=== PATIENT | male | born 1975 | race Caucasian/White ===

== ENCOUNTER 2021-03-23 20:30 | Inpatient (IN) ==
[2021-03-23] MEDS ORDERED: Azithromycin 250 MG TABLET PO ONE (21:09)
[2021-03-23] MEDS ORDERED: Isovue-370 500 ML BOTTLE IVP ONE (21:09)
[2021-03-23 21:41] LABS: Basophils % 0.2 %; Hematocrit 50.2 % (37.5-50.1); Hemoglobin 17.2 g/dL (12.9-16.9); Immature Granulocytes % 0.6 % (0-4); Mean Corpuscular HGB Conc 34.3 g/dL (31.6-35.5); Mean Corpuscular Volume 87.5 fL (83.0-100.0); Mean Platelet Volume 9.7 fL (9.4-12.4); Monocytes # 0.3 K/mcL (0.0-1.3); Monocytes % 5.1 %; Neutrophils # 3.7 K/mcL (1.6-8.9); Red Blood Count 5.74 M/mcL (4.19-5.50); Red Cell Distribution Width 13.5 % (11.5-14.5); Segmented Neutrophils % 74.1 %
[2021-03-23 21:42] LABS: Platelet Count 117 K/mcL (140-400)
[2021-03-23 21:46] LABS: Platelet Estimate Slight Decrease (Normal)
[2021-03-23 21:47] LABS: INR 1.4; Prothrombin Time 15.5 Seconds (9.4-12.1)
[2021-03-23 21:55] LABS: Alanine Aminotransferase 93 Units/L (7-52); Albumin 3.8 g/dL (3.5-5.7); Albumin/Globulin Ratio 1.2 (1.1-2.2); Alkaline Phosphatase 71 Units/L (34-104); Aspartate Amino Transferase 154 Units/L (13-39); BUN/Creatinine Ratio 9 (6-26); Bilirubin,Direct 0.2 mg/dL (0.0-0.2); Bilirubin,Indirect 0.4 mg/dL (0.0-1.0); Bilirubin,Total 0.6 mg/dL (0.3-1.0); Blood Urea Nitrogen 18 mg/dL (6-20); Calcium 8.3 mg/dL (8.6-10.3); Carbon Dioxide 22 mEq/L (23-29); Chloride 101 mEq/L (98-107); Globulin 3.3 g/dL (2.4-3.5); Glucose 269 mg/dL (70-105); Osmolality,Calculated 289 (280-300); Potassium 4.4 mEq/L (3.5-5.1); Sodium 134 mEq/L (136-145); Total Protein 7.1 g/dL (6.4-8.9); eGFR For African Americans 46 (> 60); eGFR For Non-African Americans 38 (> 60)
[2021-03-23 21:58] LABS: Troponin I < 0.03 ng/mL (< 0.04)
[2021-03-23] MEDS ORDERED: 0.9 % Sodium Chloride 500 ML IVC ONE (23:15)
[2021-03-24] MEDS ORDERED: Naloxone 0.4 MG/ML INJ IVP PRN ×2 (00:54→01:00)
[2021-03-24] MEDS ORDERED: Ondansetron 4 MG/2 ML VIAL IVP PRN (00:54)
[2021-03-24] MEDS: 0.9 % Sodium Chloride 1,000 ML IVC SCH ×2 (01:32→09:01)
[2021-03-24 03:09] LABS: Bilirubin,Urine Negative (Negative); Blood,Urine Negative (Negative); Clarity,Urine Slightly Cloudy (Clear); Glucose,Urine (UA) 500 mg/dL (Normal); Ketones,Urine Trace mg/dL (Negative); Leukocyte Esterase,Urine Negative (Negative); Nitrite,Urine Negative (Negative); Protein,Urine 30 mg/dL (Neg-Trace); Urobilinogen,Urine Normal (Normal)
[2021-03-24 03:10] LABS: Color,Urine Yellow (Yellow)
[2021-03-24 03:49] LABS: Amorphous Sediment,Urine Few per hpf (None-Few)
[2021-03-24] MEDS ORDERED: Acetaminophen 325 MG TABLET PO PRN ×2 (03:53→09:29)
[2021-03-24 05:30] LABS: Hematocrit 46.1 % (37.5-50.1); Mean Corpuscular HGB Conc 34.1 g/dL (31.6-35.5); Mean Corpuscular Hemoglobin 29.7 pg (28.0-33.3); Mean Corpuscular Volume 87.1 fL (83.0-100.0); Mean Platelet Volume 9.8 fL (9.4-12.4); Platelet Count 113 K/mcL (140-400); Red Blood Count 5.29 M/mcL (4.19-5.50); Red Cell Distribution Width 13.5 % (11.5-14.5); White Blood Count 4.3 K/mcL (4.3-11.1)
[2021-03-24 05:32] LABS: Hemoglobin 15.7 g/dL (12.9-16.9)
[2021-03-24 05:47] LABS: Calcium 8.1 mg/dL (8.6-10.3); Potassium 5.2 mEq/L (3.5-5.1)
[2021-03-24] MEDS: Diclofenac Sodium (DR) 75 MG TABLET.DR PO SCH ×2 (09:00→21:06)
[2021-03-24] MEDS: Cholecalciferol (D-3) 1,000 UNIT (25MCG) TABLET PO SCH (09:00)
[2021-03-24] MEDS ORDERED: cefTRIAXone 1,000 MG in Water for inj. (sterile) 10 ML IVP SCH (10:00)
[2021-03-24 11:02] LABS: Albumin 3.4 g/dL (3.5-5.7); Albumin/Globulin Ratio 1.2 (1.1-2.2); Bilirubin,Direct 0.1 mg/dL (0.0-0.2); Bilirubin,Indirect 0.4 mg/dL (0.0-1.0); Bilirubin,Total 0.5 mg/dL (0.3-1.0); Globulin 2.9 g/dL (2.4-3.5); Total Protein 6.3 g/dL (6.4-8.9)
[2021-03-24] MEDS: *HR* Enoxaparin 40 MG/0.4 ML SYRINGE SQ SCH (11:27)
[2021-03-24] MEDS: cefTRIAXone 1,000 MG in 0.9 % Sodium Chloride Mini Bag 100 ML IVPB SCH (11:27)
[2021-03-24] MEDS: Ipratropium 1 PUFF INHALER IH SCH ×4 (12:30→23:15)
[2021-03-24] MEDS ORDERED: Mag Hydrox/Al Hydrox/Simeth 30 ML UDC PO PRN (14:29)
[2021-03-24] MEDS ORDERED: Furosemide 20 MG/2 ML VIAL IVP ONE (17:03)
[2021-03-24] MEDS: Famotidine 20 MG/2 ML VIAL IVP SCH (18:13)
[2021-03-24] MEDS ORDERED: Azithromycin 500 MG in 0.9 % Sodium Chloride 250 ML IVPB SCH (22:00)
[2021-03-25] MEDS: Ipratropium 1 PUFF INHALER IH SCH ×4 (03:36→15:07)
[2021-03-25] MEDS: Famotidine 20 MG/2 ML VIAL IVP SCH (05:29)
[2021-03-25] MEDS: *HR* Enoxaparin 40 MG/0.4 ML SYRINGE SQ SCH (05:30)
[2021-03-25 06:20] LABS: Hematocrit 45.7 % (37.5-50.1); Hemoglobin 15.3 g/dL (12.9-16.9); Mean Corpuscular HGB Conc 33.5 g/dL (31.6-35.5); Mean Corpuscular Hemoglobin 29.5 pg (28.0-33.3); Mean Corpuscular Volume 88.2 fL (83.0-100.0); Mean Platelet Volume 9.6 fL (9.4-12.4); Platelet Count 142 K/mcL (140-400); Red Blood Count 5.18 M/mcL (4.19-5.50); Red Cell Distribution Width 13.4 % (11.5-14.5)
[2021-03-25 06:44] LABS: BUN/Creatinine Ratio 19 (6-26); Blood Urea Nitrogen 29 mg/dL (6-20); Carbon Dioxide 24 mEq/L (23-29); Chloride 104 mEq/L (98-107); Glucose 378 mg/dL (70-105); Osmolality,Calculated 303 (280-300); Potassium 5.3 mEq/L (3.5-5.1); Sodium 136 mEq/L (136-145); eGFR For African Americans > 60 (> 60); eGFR For Non-African Americans 51 (> 60)
[2021-03-25 06:46] LABS: Calcium 8.6 mg/dL (8.6-10.3)
[2021-03-25] MEDS ORDERED: Dexamethasone Sodium Phos/PF 10 MG/ML VIAL IVP SCH (09:00)
[2021-03-25] MEDS ORDERED: *HR* Dextrose 50 % in Water (Syg) 50 ML SYRINGE IVP PRN (09:08)
[2021-03-25] MEDS ORDERED: Dextrose Gel 15 GM/37.5 ML TUBE PO PRN ×2 (09:08)
[2021-03-25] MEDS ORDERED: D5% in Water 1,000 ML IVC PRN (09:08)
[2021-03-25] MEDS: cefTRIAXone 1,000 MG in 0.9 % Sodium Chloride Mini Bag 100 ML IVPB SCH (09:14)
[2021-03-25] MEDS: Cholecalciferol (D-3) 1,000 UNIT (25MCG) TABLET PO SCH (09:16)
[2021-03-25] MEDS: Diclofenac Sodium (DR) 75 MG TABLET.DR PO SCH (09:16)
[2021-03-25] MEDS ORDERED: Furosemide 20 MG/2 ML VIAL IVP ONE (10:19)
[2021-03-25 10:33] LABS: Estimated Average Glucose 166 mg/dl; Hemoglobin A1C 7.4 %
[2021-03-25] MEDS ORDERED: Furosemide 40 MG/4 ML VIAL IVP ONE (10:51)
[2021-03-25] MEDS: Insulin LISPRO 300 UNITS/3 ML VIAL SUBQ SCH ×2 (11:29→17:56)
[2021-03-25 17:33] VITALS: BP 100/66; PULSE 81; RESP 17; TEMP 98.1; O2SAT 88
[2021-03-25] MEDS ORDERED: Insulin LISPRO 300 UNITS/3 ML VIAL SUBQ SCH (21:00)
== END 2021-03-25 18:35 | disposition short-term general hospital (02) | DRG 177 ==
LOC: EMEROOGRE 20:30 → INPGRE 03-24 01:26
PROVIDERS: ADMIT Internal Medicine; ATTEND Family Medicine